=== PATIENT | male | born 1980 | race African-American/Black ===

== ENCOUNTER 2024-01-26 05:12 | Emergency (ER) | payer SELFPAY ==
[~2024-01-26] VITALS: Ht 177.8 cm; Wt 104.0 kg
[2024-01-26 05:28] VITALS: PULSE 100; RESP 20
[2024-01-26 05:31] VITALS: BP 150/99; TEMP 98.9; O2SAT 99
[2024-01-26] MEDS ORDERED: DOXY100T2 PO (05:57)
[2024-01-26] MEDS: DOXYCYCLINE HYCLATE 100MG CAPSULE PO ONE (06:00)
[2024-01-26] MEDS: CEFTRIAXONE SODIUM 1G VIAL IM ONE (06:00)
== END 2024-01-26 06:11 | disposition home or self-care (01) ==
LOC: ER 05:12
DX: A64 Unspecified sexually transmitted disease (principal); I10 Essential (primary) hypertension
CPT/HCPCS: 99283; 96372; J0696

== ENCOUNTER 2025-01-09 22:52 | Emergency (ER) | payer OTHER ==
[~2025-01-09] VITALS: Ht 177.8 cm; Wt 117.0 kg
[~2025-01-09 22:52] MED LIST: DOXY100T2 PO
[2025-01-10 01:56] LABS: CLARITY URINE CLEAR (CLEAR); COLOR URINE YELLOW (YELLOW); GLUCOSE URINE NEGATIVE (NEGATIVE); KETONES URINE NEGATIVE (NEGATIVE); LEUKOCYTE ESTERASE URINE 1+ (NEGATIVE); NITRITE URINE NEGATIVE (NEGATIVE); OCCULT BLOOD URINE NEGATIVE (NEGATIVE); PH URINE 5.5 (4.5-8.0); PROTEIN URINE NEGATIVE (NEGATIVE); SPECIFIC GRAVITY URINE 1.021 (1.005-1.030)
[2025-01-10 02:11] LABS: BACTERIA URINE TRACE; RBC URINE 0-2 /hpf (0-2); SQUAMOUS EPITHELIAL CELL URINE FEW /lpf (RARE/1+); WBC URINE 15-25 /hpf (0-2)
[2025-01-10] MEDS ORDERED: DOXY-461 MT (03:37)
[2025-01-10] MEDS ORDERED: IBUP-2029 MT (03:37)
[2025-01-10] MEDS: DOXYCYCLINE HYCLATE 100MG CAPSULE PO ONE (04:15)
[2025-01-10] MEDS: IBUPROFEN 600MG TABLET PO ONE (04:16)
[2025-01-10 04:20] VITALS: BP 129/103; PULSE 91; RESP 12; TEMP 36.7; O2SAT 96
[2025-01-10] MEDS: CEFTRIAXONE SODIUM 500MG VIAL IM ONE (04:23)
[2025-01-10] MEDS: LIDOCAINE HCL 1% 20ML VIAL INFIL ONE (04:23)
== END 2025-01-10 04:20 | disposition home or self-care (01) ==
LOC: ER 22:52
DX: N34.2 Other urethritis (principal); I10 Essential (primary) hypertension; Z79.899 Other long term (current) drug therapy
CPT/HCPCS: 99283; 81003; 87086; 96372; J0696; J3490; Z7610